=== PATIENT | male | born 1945 | race Caucasian/White ===

== ENCOUNTER 2021-02-03 14:42 | Emergency (ER) | payer OTHER, MEDICARE ==
[~2021-02-03] VITALS: Ht 180.3 cm; Wt 79.4 kg
[2021-02-03 15:17] VITALS: BP_SYST 134
--- NOTE | 2021-02-03 16:00 | NUR ---
Placed in room 3 . Placed on cardiac technician, blood pressure machine and pulse oximeter. To gown for exam. Side rails up.
--- NOTE | 2021-02-03 16:19 | NUR ---
Pt came into ER for left hand fifth digit laceration Xtoday after reaching into a hayes for his water bottle. Pt cap refill less than 2 denies loss of sensation. Pt AAOX4 speaking full sentences no distress noted.
--- NOTE | 2021-02-03 16:21 | NUR ---
ER at bedside examining patient.
--- NOTE | 2021-02-03 16:24 | NUR ---
Pt laceration cleaned with sterile saline and iodine and sterile gauze.
[2021-02-03] MEDS ORDERED: LIDOCAINE 1%, 20 ML MDV 20 ML ONE (18:59)
[2021-02-03] MEDS ORDERED: BACITRACIN 1 GM OINT TP ONE (19:00)
[2021-02-03] MEDS ORDERED: TETANUS IMMUNE GLOBULIN/PF 250 UNITS/SYR (HYPERTET) IM ONE (19:00)
[2021-02-03] MEDS ORDERED: LIDOCAINE 1% 10 MG/ML, 20 ML MDV INJ ONE (19:00)
--- NOTE | 2021-02-03 19:10 | NUR ---
Patient has apporximatley 2 cm laceration to left hand fifth digit. Dr. Lloyd applied 4 sutures using sterile technique. Edges well approximated. Site cleansed with sterile saline and iodine. Dressing of bacitracin and rolled gauze applied to site. No bleeding noted. Pt tolerated well.
[2021-02-03] MEDS ORDERED: DIPH-TET-PERTUS Vaccine 0.5 ML VIAL (ADACEL) I.M. ONE ×2 (19:15→19:51)
[2021-02-03] MEDS ORDERED: cephALEXin 500 MG CAPSULE PO ONE (19:30)
--- NOTE | 2021-02-03 19:46 | NUR ---
Medicated with TDAP per MD order. Medication order was not able to load into EMAR or Pyxus. Adacel 0.5ML Lot [id number] Expiration 10/27/2022. Consent given Administered IM in [facility].
[2021-02-03] MEDS ORDERED: CEPH-548 PO (19:47)
[2021-02-03 19:56] VITALS: BP_SYST 134
--- NOTE | 2021-02-03 19:56 | NUR ---
Patient given written and verbal discharge instructions and verbalizes understanding. ER MD discussed with patient the results and treatment provided. Patient in stable condition. ID arm band removed. Rx of keflex given. Patient educated on pain management and to follow up with PMD. Pain Scale 0/10. Opportunity for questions provided and answered. Medication side effect fact sheet provided.
== END 2021-02-03 19:56 | disposition home or self-care (01) ==
LOC: SED 14:42
DX: S61.217A Laceration without foreign body of left little finger without damage to nail, initial encounter (principal); I10 Essential (primary) hypertension; Z79.899 Other long term (current) drug therapy; W45.8XXA Other foreign body or object entering through skin, initial encounter; Y93.89 Activity, other specified; Y92.89 Other specified places as the place of occurrence of the external cause; Y99.8 Other external cause status
CPT/HCPCS: 12002; 90471; 90715; 99283; J2001